=== PATIENT | female | born 1965 | race Caucasian/White ===

== ENCOUNTER 2023-03-23 06:32 | Observation (INO) ==
--- NOTE | 2023-01-26 12:29 | PAT Medication Instructions ---
Medication Instructions Date of Service January 26, 2023 Home Medications acetaminophen 300 mg-codeine 30 mg tablet 1 tab PO Q8H PRN Pain atorvastatin 40 mg tablet 40 mg PO PM cholecalciferol (vitamin D3) 50 mcg (2,000 unit) tablet (Vitamin D3) 2,000 unit PO BID cyclobenzaprine 10 mg tablet 10 mg PO TID PRN Muscle Spasm cyclosporine 0.05 % eye drops in a dropperette (Restasis) 1 drp ophthalmic (eye) Q12H empagliflozin 10 mg tablet (Jardiance) 10 mg PO QPM escitalopram oxalate 10 mg tablet (Lexapro) 10 mg PO QAM fexofenadine 180 mg tablet 180 mg PO QPM fluticasone propionate 50 mcg/actuation nasal spray,suspension 1 spray intranasal QAM gabapentin 300 mg tablet 300 mg PO HS lacosamide 100 mg tablet 100 mg PO BID levothyroxine 75 mcg tablet 75 mcg PO QPM omega-3 fatty acids-fish oil 684 mg-1,200 mg capsule,delayed release 1 cap PO BID pantoprazole 20 mg tablet,delayed release 20 mg PO QPM potassium chloride 20 mEq tablet,extended release 20 meq PO QPM pramipexole 0.5 mg tablet (Mirapex) 0.5 mg PO TID valsartan 40 mg tablet 40 mg PO QPM STOP taking 2 weeks before surgery (or as soon as possible if surgery is within 2 weeks) omega-3 fatty acids-fish oil 684 mg-1,200 mg capsule,delayed release 1 cap PO BID STOP taking 3 days before surgery empagliflozin 10 mg tablet (Jardiance) 10 mg PO QPM DO NOT take the morning of surgery cholecalciferol (vitamin D3) 50 mcg (2,000 unit) tablet (Vitamin D3) 2,000 unit PO BID cyclobenzaprine 10 mg tablet 10 mg PO TID PRN Muscle Spasm Take morning of surgery With a small sip of water, OTHERWISE NOTHING TO EAT OR DRINK AFTER MIDNIGHT: acetaminophen 300 mg-codeine 30 mg tablet 1 tab PO Q8H PRN Pain (if needed) cyclosporine 0.05 % eye drops in a dropperette (Restasis) 1 drp ophthalmic (eye) Q12H escitalopram oxalate 10 mg tablet (Lexapro) 10 mg PO QAM fluticasone propionate 50 mcg/actuation nasal spray,suspension 1 spray intranasal QAM lacosamide 100 mg tablet 100 mg PO BID pramipexole 0.5 mg tablet (Mirapex) 0.5 mg PO TID Take evening before surgery acetaminophen 300 mg-codeine 30 mg tablet 1 tab PO Q8H PRN Pain (if needed) atorvastatin 40 mg tablet 40 mg PO PM cholecalciferol (vitamin D3) 50 mcg (2,000 unit) tablet (Vitamin D3) 2,000 unit PO BID cyclobenzaprine 10 mg tablet 10 mg PO TID PRN Muscle Spasm (if needed) cyclosporine 0.05 % eye drops in a dropperette (Restasis) 1 drp ophthalmic (eye) Q12H fexofenadine 180 mg tablet 180 mg PO QPM gabapentin 300 mg tablet 300 mg PO HS lacosamide 100 mg tablet 100 mg PO BID levothyroxine 75 mcg tablet 75 mcg PO QPM pantoprazole 20 mg tablet,delayed release 20 mg PO QPM potassium chloride 20 mEq tablet,extended release 20 meq PO QPM pramipexole 0.5 mg tablet (Mirapex) 0.5 mg PO TID valsartan 40 mg tablet 40 mg PO QPM Other Notes If you have any questions please call us at [phone] or [phone] or [phone] or [phone]
--- NOTE | 2023-01-29 11:15 | Anesthesiology Consultation ---
Date of Service January 29, 2023 Assessment & Plan (1) Encounter for pre-operative examination: - check BSG am DOS. - patient was scheduled for L TKA 12/22/22, this was cancelled due to cellulitis of left lower extremity per patient. She states is soon establishing care with infectious disease and starting IV antibiotics. Suad with surgeon's office states the provider is aware in full of details including patient establishing care with infectious disease for ongoing treatment. - anesthesia reaction: bradycardia after bladder botox injection. - medical clearance 12/03/22: "...surgical clearance for her left knee replacement...pre-operative risk stratification for left TKA at [facility] w/Dr. Mckenzie...risk of major cardiac event (95% CI)-3.9% (2.9%-5.4%) risk of , [place] or cardiac arrest at 30 days after noncardiac surgery. 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 Wallis who advised nothing additional is needed from anesthesia standpoint prior to surgery. - Outpatient joint assessment: Patient is currently scheduled for inpatient pathway. If re-evaluated and patient/surgeon requests outpatient pathway, patient is not recommended candidate for outpatient joint program from anesthesia standpoint. Chart Review Chart Review: Acceptable Risk for Surgery and Patient seen in Pre Admission Testing Teaching & Discussion Pre-Anesthesia Teaching/Discussion Notes: Instructed NPO after midnight before surgery, except medications with 15 cc of water. Medication instructions provided according to the PAT guidelines. History Surgery Operation Date: 02/10/23 07:00 Proposed Procedures p Right Total Knee Arthroplasty - Dayne Mckenzie DO Height/Weight Height: 5 ft 5 in Weight: 132.3 kg Allergies Allergy/AdvReac Type Severity Reaction Status Date / Time adhesive Allergy Mild Rash Verified 01/25/23 15:40 fluconazole Allergy Mild Rash Verified 01/25/23 15:40 Sulfa (Sulfonamide Allergy Mild Rash Verified 01/25/23 15:40 Antibiotics) Thiazides Allergy Mild Rash Verified 01/25/23 15:40 lamotrigine Allergy Intermediate generalized Uncoded 01/29/23 12:00 rash and itching nystatin Allergy Intermediate rash Uncoded 01/29/23 12:00 Medications Home Medications Medication Instructions Recorded Confirmed Last Taken acetaminophen 300 mg-codeine 30 mg 1 tab PO Q8H PRN Pain 11/19/22 01/25/23 12/20/22 20:00 tablet atorvastatin 40 mg tablet 40 mg PO PM 11/19/22 01/25/23 12/21/22 23:00 cholecalciferol (vitamin D3) 50 2,000 unit PO BID 11/19/22 01/25/23 12/22/22 06:00 mcg (2,000 unit) tablet (Vitamin D3) cyclobenzaprine 10 mg tablet 10 mg PO TID PRN Muscle Spasm 11/19/22 01/25/23 12/19/22 20:00 cyclosporine 0.05 % eye drops in a 1 drp ophthalmic (eye) Q12H 11/19/22 01/25/23 Unknown dropperette (Restasis) empagliflozin 10 mg tablet 10 mg PO QPM 11/19/22 01/25/23 12/18/22 20:00 (Jardiance) escitalopram oxalate 10 mg tablet 10 mg PO QAM 11/19/22 01/25/23 12/22/22 06:00 (Lexapro) fexofenadine 180 mg tablet 180 mg PO QPM 11/19/22 01/25/23 12/21/22 23:00 fluticasone propionate 50 1 spray intranasal QAM 11/19/22 01/25/23 12/21/22 23:00 mcg/actuation nasal spray,suspension gabapentin 300 mg tablet 300 mg PO HS 11/19/22 01/25/23 12/18/22 08:00 lacosamide 100 mg tablet 100 mg PO BID 11/19/22 01/25/23 12/22/22 06:00 levothyroxine 75 mcg tablet 75 mcg PO QPM 06/01/25/23 12/21/22 23:00 omega-3 fatty acids-fish oil 684 1 cap PO BID 11/19/22 01/25/23 12/15/22 23:00 mg-1,200 mg capsule,delayed release pantoprazole 20 mg tablet,delayed 20 mg PO QPM 11/19/22 01/25/23 12/22/22 06:00 release potassium chloride 20 mEq 20 meq PO QPM 11/19/22 01/25/23 12/21/22 23:00 tablet,extended release pramipexole 0.5 mg tablet (Mirapex) 0.5 mg PO TID 11/19/22 01/25/23 12/21/22 23:00 valsartan 40 mg tablet 40 mg PO QPM 11/19/22 01/25/23 12/21/22 23:00 Past Medical History Medical History (Updated 02/01/23 @ 09:52 by Pat Wiley PA-C) Asthma controlled, stable per pt Chronic kidney disease (CKD), stage III (moderate) Depression Epilepsy Grand mal type, most recent 09/2022 (in setting of being taken off of her off seizure med, since has been put back on lacosamide- no issues since) Follows with neurology (Dr. Elfego Rogers/[facility]) GERD (gastroesophageal reflux disease) controlled, stable per pt Hearing deficit Hiatal hernia History of COVID-19 04/2021- mild symptoms -denies hospitalization-resolved HTN (hypertension) Per PCP records, patient denies Hyperglycemia Per PCP records, started on Jardiance for hx of hyperglycemia Patient states reason she is taking is for renal protection; 01/29/23 A1c 5.9% Hyperlipidemia Hypothyroidism Lupus Morbid obesity with BMI of 45.0-49.9, adult Polyneuropathy Per PCP records Raynaud disease Sleep apnea CPAP (non-compliant x 2 years) Temporomandibular joint disorder + clicking, no locking, braces "helped" Patient denies h/o stroke, heart attack, heart failure, blood clots or blood transfusions. Exercise / Class Metabolic Activity III < 4 Walking/Shop/Light housework (denies chest discomfort or shortness of breath with usual activities, ambulates with canes) Past Family History Family History Mother Family history of reaction to anesthesia nausea Past Surgical History Surgical History (Updated 01/29/23 @ 11:05 by Pat Wiley PA-C) History of anesthesia reaction Bradycardia after bladder botox injection History of bladder surgery botox injection History of carpal tunnel surgery of right wrist History of colonoscopy History of esophagogastroduodenoscopy (EGD) History of lumbar laminectomy History of lumpectomy of right breast benign History of partial hysterectomy History of placement of ear tubes History of shoulder surgery x2 on right--decompression/claviclectomy History of sinus surgery x2 History of surgical removal of ganglion cyst R wrist History of tonsillectomy History of tooth extraction History of wisdom tooth extraction Hx of LASIK Nausea and vomiting after administration of anesthetic agent Status post biopsy of kidney pt unsure of results, 05/2022 Status post correction of deviated nasal septum Status post peroneal tendon repair 2016 [place] Past Anesthesia History Other (bradycardia with bladder botox injection; mother with PONV) History of PONV No Hx of Motion Sickness and History of PONV (denies needing scop patch) Social History Smoking Status: Former smoker Do You Dip or Chew Tobacco: No Smoking End Date: 30 years ago Hx Alcohol Use: Yes Alcohol type: wine alcohol intake frequency: holidays/special occasions only Hx Substance Use: No substance use type: does not use Review of Systems Patient denies chest pain, shortness of breath, dyspnea on exertion, fever, chills, cough, wheezing, or palpitations. Physical Exam Vital Signs Vitals BP 132/80 P 80 TEMP 97.7 SP02 95% on RA RESP 18 Physical Full cervical extension range of motion without pain TMD 3.5 finger breadths Mallampati Score 2 Dentition: front upper chipped tooth and cap; denies loose teeth, crowns, implants or bridges Lungs: normal respiratory effort. Good air movement, clear throughout to auscultation, no adventitious breath sounds Cardiac: regular rate and rhythm, no murmurs noted Carotid arteries: negative bruit bilat Lab Results Anesthesia Preop Results Results Anesthesia Widget: WBC 7.12 K/ul (4.8-10.8) 01/29/23 Hgb 13.3 g/dl (12.0-16.0) 01/29/23 Hct 41.3 % (37.0-47.0) 01/29/23 Plt 229 K/uL (130-400) 01/29/23 Na 140 mmol/L (136-145) 01/29/23 K 4.1 mmol/L (3.5-5.1) 01/29/23 Cl 108 mmol/L (98-107) H 01/29/23 CO2 25 mmol/L (21-32) 01/29/23 BUN 22 mg/dl (6-23) 01/29/23 Creat 0.75 mg/dl (0.6-1.2) 01/29/23 Glucose Level 101 mg/dl (70-99(Fasting)) H 01/29/23 POC Glucose 92 mg/dl (70-99) 12/22/22 PT 10.5 Seconds (9.0-12.0) 01/29/23 PTT 28.2 Seconds (21.0-31.0) 01/29/23 INR 1.0 (0.9-1.1) 01/29/23 HA1c 5.9 % (4.5-5.6) H 01/29/23 Urine Color Yellow 01/29/23 Urine Appearance Clear (Clear) 01/29/23 Urine pH 5.0 (4.5-7.5) 01/29/23 Urine Specific [place] 1.039 (1.000-1.030) H 01/29/23 Urine Protein 2+ (Negative) H 01/29/23 Urine Glucose (UA) 3+ (Negative) H 01/29/23 Urine Ketones Negative (Negative) 01/29/23 Urine Blood Trace (Negative) H 01/29/23 Urine Nitrite Negative (Negative) 01/29/23 Urine Bilirubin Negative (Negative) 01/29/23 Urine Urobilinogen Negative (Negative) 01/29/23 Urine Leukocyte Esterase Negative (Negative) 01/29/23 Urine WBC (Auto) >30 /hpf (0-5) H 01/29/23 Urine RBC (Auto) 5-10 /hpf (0-4) H 01/29/23 Urine Hyaline Casts (Auto) 1-5 /lpf (0-5) 01/29/23 Urine Epithelial Cells (Auto) 20-30 /lpf (0-5) H 01/29/23 Urine Bacteria (Auto) Negative (Negative) 01/29/23 SARS-CoV-2, RNA, NAAT NEGATIVE (NEGATIVE) 12/22/22 Blood Type O Positive 01/29/23 Antibody Screen NEGATIVE 01/29/23 Testing Electrocardiogram Date: 12/01/22 NSR, rate 86 bpm Chest X-Ray Date: 12/01/22 No acute chest disease Echocardiogram Date: 08/24/22 EF 55-60% Normal wall motion No regional wall motion abnormalities LA mildly dilated No significant valvular pathology Other Testing MRI brain 10/29/22 No significant intracranial abnormality CT abdomen pelvis 10/14/22 Colonic diverticulosis Degenerative changes of the spine with grade 1 anterolisthesis of L4 on L5 No findings to explain the patient's hematuria
--- NOTE | 2023-03-09 07:53 | History & Physical Report ---
Date of Service March 09, 2023 date of surgery: 03/23/23 procedure: Right Total Knee Arthroplasty Surgeon: Dayne Mckenzie Assessment & Plan (1) Arthritis of right knee: Plan: Risk and benefits of the procedure were discussed, she has elected to proceed with surgical invention, right total knee arthroplasty. Discussed overnight stay at the hospital with discharge home the following day with home health physical therapy. Will place on aspirin 81 mg twice a day for 1 month postop, follow-up 2 weeks after surgery sooner if she is having any issues The risks and benefits have been discussed including, but not limited to, risk of infection, nerve injury, stiffness, loss of motion, failure to improve, etc. Reasonable outcomes and options of treatment were discussed. An explanation of appropriate alternatives to the procedure that may be advantageous were discussed and their risks and benefits, as well as the risks and benefits of not proceeding with treatment. I offered to answer any additional inquiries concerning the treatment involved. All the patient's questions were answered. The patient is agreeable, understanding of the treatment plan and alternatives, and wishes to proceed with the treatment plan. History of Present Illness Chief Complaint: Right knee pain Primary Care Provider: Sandy Milligan DO Mrs. De Anda is a 58-year-old female who presents for preop evaluation prior to her Right total knee replacement. She has been having pain in the right knee for many years now which is gradually worsened and is now affecting her daily activities including walking standing using stairs, she does ambulate with the assistance of 2 canes. She has had previous corticosteroid injections as well as viscosupplementation without much improvement. At this point in time x-rays were reviewed which show advanced degenerative changes to the Right knee, after discussing further care she would like to proceed with surgical intervention Allergies Allergy/AdvReac Type Severity Reaction Status Date / Time adhesive Allergy Mild Rash Verified 01/25/23 15:40 fluconazole Allergy Mild Rash Verified 01/25/23 15:40 Sulfa (Sulfonamide Allergy Mild Rash Verified 01/25/23 15:40 Antibiotics) Thiazides Allergy Mild Rash Verified 01/25/23 15:40 lamotrigine Allergy Intermediate generalized Uncoded 01/29/23 12:00 rash and itching nystatin Allergy Intermediate rash Uncoded 01/29/23 12:00 Home Medications Medication Instructions Recorded Confirmed Type acetaminophen 300 mg-codeine 30 mg 1 tab PO Q8H PRN Pain 11/19/22 01/25/23 Hi story tablet atorvastatin 40 mg tablet 40 mg PO PM 11/19/22 01/25/23 History cholecalciferol (vitamin D3) 50 2,000 unit PO BID 11/19/22 01/25/23 History mcg (2,000 unit) tablet (Vitamin D3) cyclobenzaprine 10 mg tablet 10 mg PO TID PRN Muscle Spasm 11/19/22 01/25/23 History cyclosporine 0.05 % eye drops in a 1 drp ophthalmic (eye) Q12H 11/19/22 01/25/23 History dropperette (Restasis) empagliflozin 10 mg tablet 10 mg PO QPM 11/19/22 01/25/23 History (Jardiance) escitalopram oxalate 10 mg tablet 10 mg PO QAM 11/19/22 01/25/23 History (Lexapro) fexofenadine 180 mg tablet 180 mg PO QPM 11/19/22 01/25/23 History fluticasone propionate 50 1 spray intranasal QAM 11/19/22 01/25/23 History mcg/actuation nasal spray,suspension gabapentin 300 mg tablet 300 mg PO HS 11/19/22 01/25/23 History lacosamide 100 mg tablet 100 mg PO BID 11/19/22 01/25/23 History levothyroxine 75 mcg tablet 75 mcg PO QPM 11/19/22 01/25/23 History omega-3 fatty acids-fish oil 684 1 cap PO BID 11/19/22 01/25/23 History mg-1,200 mg capsule,delayed release pantoprazole 20 mg tablet,delayed 20 mg PO QPM 11/19/22 01/25/23 History release potassium chloride 20 mEq 20 meq PO QPM 11/19/22 01/25/23 History tablet,extended release pramipexole 0.5 mg tablet (Mirapex) 0.5 mg PO TID 11/19/22 01/25/23 History valsartan 40 mg tablet 40 mg PO QPM 11/19/22 01/25/23 History Past Med/Surg History Medical History Asthma controlled, stable per pt Chronic kidney disease (CKD), stage III (moderate) Depression Epilepsy Grand mal type, most recent 09/2022 (in setting of being taken off of her off seizure med, since has been put back on lacosamide- no issues since) Follows with neurology (Dr. Elfego Rogers/[facility]) GERD (gastroesophageal reflux disease) controlled, stable per pt Hearing deficit Hiatal hernia History of COVID-19 04/2021- mild symptoms -denies hospitalization-resolved HTN (hypertension) Per PCP records, patient denies Hyperglycemia Per PCP records, started on Jardiance for hx of hyperglycemia Patient states reason she is taking is for renal protection; 01/29/23 A1c 5.9% Hyperlipidemia Hypothyroidism Lupus Morbid obesity with BMI of 45.0-49.9, adult Polyneuropathy Per PCP records Raynaud disease Sleep apnea CPAP (non-compliant x 2 years) Temporomandibular joint disorder + clicking, no locking, braces "helped" Surgical History History of anesthesia reaction Bradycardia after bladder botox injection History of bladder surgery botox injection History of carpal tunnel surgery of right wrist History of colonoscopy History of esophagogastroduodenoscopy (EGD) History of lumbar laminectomy History of lumpectomy of right breast benign History of partial hysterectomy History of placement of ear tubes History of shoulder surgery x2 on right--decompression/claviclectomy History of sinus surgery x2 History of surgical removal of ganglion cyst R wrist History of tonsillectomy History of tooth extraction History of wisdom tooth extraction Hx of LASIK Nausea and vomiting after administration of anesthetic agent Status post biopsy of kidney pt unsure of results, 05/2022 Status post correction of deviated nasal septum Status post peroneal tendon repair 2016 [place] Family History Mother Family history of reaction to anesthesia nausea Social History Smoking Status: Former smoker Second Hand Exposure: No; Do You Dip or Chew Tobacco: No; Hx Alcohol Use: Yes Alcohol type: wine Hx Substance Use: No Preferred Language: Faroese Communication Ability: Effective Coagulating Operator Required: No Beliefs That Will Affect Care: None Current Living Situation: Alone Feels Safe at Home: Yes Assistive Devices: Cane, CPAP, Glasses and Hearing Aid - Bilateral Review of Systems Review of Systems: All systems reviewed & are unremarkable except as noted in HPI & below Constitutional: no fever, no chills and no sweats Respiratory: no cough and no dyspnea Cardiovascular: no chest pain, no dyspnea and no orthopnea Gastrointestinal: no abdominal pain, no nausea and no vomiting Musculoskeletal: as per Subjective / HPI Physical Exam Physical Exam: HT: 5ft 5in WT: 132 kg Constitutional: WD/WN, vitals as above no acute distress Respiratory: normal respiratory effort, lungs clear to auscultation no respiratory distress, no labored breathing and does not use accessory muscles Cardiovascular: RRR, no murmur, no edema Gastrointestinal (Abdomen): normal bowel sounds, soft, nontender, no hepatosplenomegaly Musculoskeletal: Right Knee Physical Exam ambulates with a limp, there is no erythema, warmth, ecchymosis or atrophy noted, +1 effusion, greatest tenderness over the medial joint line and anterior knee joint. negative patellar apprehension , mild crepitation with motion, jimmy's negative, posterior drawer negative. positive mcmurrays medially, negative anterior drawer, knee stable with valgus/varus stress. no extensor lag. pain with active range of motion, AROM 0/3/110, Passive ROM 0/3/115. No pain with active/passive ROM of ankle. Lower Extremity Strength normal. Lower Extremity Neuro-vascular is normal Results & Data Results & Data Diagnostic Findings Right Knee X-ray: Right knee series showing advanced degenerative changes to the right knee, joint space narrowing, osteophyte formation and subchondral sclerosis noted. no acute bony pathology noted.
[~2023-03-23 06:32] MED LIST: ACETAMINOPHEN 500 MG TAB PO SCH; CeleBREX 200 MG CAP PO SCH; FAMOTIDINE 20 MG TAB PO SCH; GABAPENTIN 300 MG CAP PO SCH; LR 500ML BOLUS, THEN 15ML/HR IV SCH; LR 60ML/HR IV SCH; METOCLOPRAMIDE HCL 10 MG TABLET PO SCH; ROPIVACAINE 0.5% HCL/PF 150 MG, BUPIVACAINE 0.75% MPF 20 ML, EPINEPHrine 30MG/30ML (OR ... INSTIL SCH; TRANEXAMIC ACID 1,000 MG **IV Intra-op IV SCH; TRANEXAMIC ACID 1,000 MG **IV Pre-op IV SCH
[2023-03-23] MEDS ORDERED: ORTHO JOINT ANESTHETIC ONE (06:38)
[2023-03-23] MEDS ORDERED: KETOROLAC 30 MG/ML VIAL ONE (06:41)
[2023-03-23] MEDS ORDERED: LIDOCAINE 2% 2 ML VIAL/AMP(20MG/ML) INFIL ONE (06:41)
[2023-03-23] MEDS ORDERED: MIDAZOLAM HCL 1 MG/ML 2ML VIAL ONE (06:41)
[2023-03-23] MEDS ORDERED: PROPOFOL IV EMULSION 10 MG/ML 20 ML VIAL IV ONE ×3 (06:41→09:33)
[2023-03-23] MEDS ORDERED: ONDANSETRON INJ 2 MG/ML 2 ML VIAL ONE (06:41)
[2023-03-23] MEDS ORDERED: GLYCOPYRROLATE 0.2 MG/ML VIAL ONE (06:41)
[2023-03-23] MEDS ORDERED: KETAMINE 50 MG/5 ML SYRINGE ONE (06:51)
--- NOTE | 2023-03-23 07:28 | History & Physical Bridge Note ---
Date of Service March 23, 2023 History & Physical Bridge Note I have examined the patient, reviewed the History & Physical and in the interval since the performance of the History & Physical I have noted the following changes of clinical significance: no changes noted
[2023-03-23] MEDS ORDERED: BUPIVACAINE 0.5 % 5 MG/1 ML PF 10ML VIAL ONE (07:32)
[2023-03-23] MEDS ORDERED: ROPIVACAINE 0.5% 5 MG/ML 30 ML VIAL ONE (07:32)
[2023-03-23] MEDS ORDERED: fentaNYL citrate PF 100 MCG/2 ML VIAL IV PRN (08:28)
[2023-03-23] MEDS ORDERED: ATROPINE SULFATE 0.1 MG/ML 10ML SYR IV PRN (08:28)
[2023-03-23] MEDS ORDERED: ePHEDrine sulfate 50 MG/ML AMP IV PRN (08:28)
[2023-03-23] MEDS ORDERED: PHENYLEPHRINE 100MCG/ML 5ML SYR ONE (09:05)
[2023-03-23] MEDS ORDERED: ePHEDrine sulfate 50 MG/5 ML SYR ONE (09:21)
--- NOTE | 2023-03-23 10:03 | Operative Report ---
Post Operative Report Pre & Post Diagnosis Operation Date: 03/23/23 08:15 Pre-Op Diagnosis: Right Knee Osteoarthritis Post-Op Diagnosis: Right Knee Osteoarthritis I identified the patient and participated in the time-out.: Yes Procedure Operation Date: 03/23/23 08:15 Actual Procedures p Right Total Knee Arthroplasty(Right) Utilizing [employer] 2 patient-matched total knee arthroplasty size femur 5 tibia 5 Poly 11 patella 32 justine Mckenzie DO Surgeon Dayne Mckenzie DO Lei Maker Hector BRAUN Estimated Blood Loss 10 Findings Consistent with Post-Op Diagnosis Patient presents with severe end-stage tricompartmental DJD eburnated [id number] marginal osteophytes subchondral sclerosis moderate to large effusion Specimens Bone and cartilage Drains Medium bore Hemovac Anesthesia Type MAC Spinal Regional Complications none Disposition Accompanied Patient To Recovery: No Disposition: Recovery Room Indications Patient presents with severe end-stage tricompartmental DJD after failed attempted conservative management occluding physical therapy anti-inflammatories relative rest activity modification corticosteroid injection viscosupplementation Description of Procedure After proper prepping and draping of the Right lower extremity anterior midline incision was made over the region of the extensor extensor mechanism after meticulous hemostasis was obtained and maintained in subcutaneous tissues a medial parapatellar incision was made The patella was subluxed lateralward the medial lateral gutter were cleaned from any hypertrophic synovitis and scar tissue of the distal femoral block was placed and the distal femoral osteotomy cut was made subsequently the chamfers anterior and posterior osteotomy cuts were made utilizing the 4-in-1 block the tibia was subsequently subluxed anteriorward medial and ateral meniscal remnants were excised in their entirety remnants of the anterior and posterior cruciate ligaments were excised in their entirety excellent exposure of the proximal tibia was obtained the tibial osteotomy guide was placed on the proximal tibial osteotomy cut was made once again the knee was irrigated with copious amounts of sterile saline solution the patella was subsequently everted lateralward thickened scar tissue around the patella was removed the patella was subsequently cut utilizing a freehand technique and was drilled prepared for final preparation and placement of patella socially flexion-extension gaps were checked and the equal and symmetric trials were placed to the appropriate femoral and tibial trials with poly-spacer being placed for equal flexion and extension gaps and full range of motion including extension to 0 and flexion to 140 the trial components after having been taken to recovery range of motion was subsequently removed meticulous hemostasis was obtained and maintained subsequently a knee block injection of joint cocktail including ropivacaine 0.5% 150 mg. Bupivacaine 0.5% epinephrine 1-200,030 mL's toradol 30 mg dexamethasone 4 mg ketamine 10 mg clonidine 100 micrograms normal saline solution 30 mg was infiltrated into the soft tissues of the posterior knee medial lateral gutters and periosteal synovium special attention was paid to protect neurovascular structures at all times subsequently trial components having been removed the knee was irrigated with sterile saline solution. debris was removed the proximal tibia was subsequently prepared and was made ready for the placement of the tibial component tibial component was also cemented and tamped into position the femoral component was subsequently placed and cemented in the position the patellar component was subsequently cemented in position because hemostasis once again obtained and maintained wound having been thoroughly irrigated with debridement and debridement lavage was performed as well as a medial parapatellar incision closed with #1 Vicryl in interrupted fashion subcutaneous was closed with #2 Vicryl skin was closed with skin clips. PA-C was necessary for prepping and drapping as well as wound closure of deep fascia Sub cutaneous tissue and skin and was necessary for the case. A sterile compressive dressing was placed patient was taken to recovery in stable condition of report dictated by Jonah I attest to the content of the Intraoperative Record and any orders documented therein. Any exceptions are noted below.Due to the complex nature of the procedure, the entire surgery was performed with the operational assistance of Hector BRAUN. The addictions counselor assistant, under direct supervision, was involved in the actual performance of all aspects of the surgical procedure including hemostas is, tissue retraction and incision, instrument management, patient positioning, and wound closure. I attest to the content of the Intraoperative Record and any orders documented therein. Any exceptions are noted below.
--- NOTE | 2023-03-23 11:15 | XRay Report ---
XR knee RT 1 or 2V routine CLINICAL HISTORY: Postoperative evaluation. COMPARISON: Knee radiographs March 28, 2020. FINDINGS: Alignment of the total right knee arthroplasty is anatomic. There is no periprosthetic fra cture or unexpected radiopaque foreign body. There are surgical drains. IMPRESSION: Expected findings following total right knee arthroplasty. ACT 112: Negative or not required by law. Electronically signed by: Danny Maier M.D. 03/23/2023 11:13 AM
[2023-03-23] MEDS ORDERED: ONDANSETRON INJ 2 MG/ML 2 ML VIAL IV PRN (12:29)
[2023-03-23] MEDS ORDERED: diphenhydrAMINE 50 MG/ML VIAL IV PRN (12:29)
[2023-03-23] MEDS ORDERED: HYDROmorphone INJ 0.5 MG/0.5 ML SYR IV PRN (12:29)
[2023-03-23] MEDS ORDERED: MAGNESIUM HYDROXIDE SUSP 30 ML UDC PO PRN (12:29)
[2023-03-23] MEDS ORDERED: bisacodyL 10 MG SUPP PR PRN (12:29)
[2023-03-23] MEDS ORDERED: NALOXONE HCL 0.4 MG/1 ML VIAL/CARP IV PRN (12:29)
[2023-03-23] MEDS ORDERED: ARTIFICIAL TEARS OPB PRN (13:06)
[2023-03-23] MEDS ORDERED: PHARMACY GLYCEMIC MGMT CONSULT PRN (13:24)
[2023-03-23] MEDS: SODIUM CHLORIDE 0.9% 1,000 ML IV SCH ×2 (13:58→23:42)
--- NOTE | 2023-03-23 14:10 | Pharmacy Report ---
Pharmacy Glycemic Short Note 2 - Date of Service March 23, 2023 - Glycemic Short BSG Results (Last 24 hours): 03/23/23 06:59 POC Glucose 116 H OUTPATIENT ANTIDIABETIC REGIMEN: * Jardiance 10 mg PO daily * HbA1C = 5.9% (01/29/23) ASSESSMENT: * Ms De Anda is a 58 y/o F with a PMH of T2DM who presents for RTKA. Patient is POD 0. * Patient received dexamethasone in ortho mix. * Patient's preop BSG was 116 mg/dL. Patient ate lunch prior to post-op BSG. * Due to fasting <120 mg/dL, will defer on basal insulin. * Novolog weight-based stress of 2. PLAN FOR INPATIENT GLYCEMIC CONTROL: * Hold outpatient oral diabetes medications * Basal insulin * defer * Bolus insulin * NovoLog per scale ACHS or Q6hrs while NPO * Goal Range: Low 110 mg/dL - High 140 mg/dL * Correction Factor: 25 mg/dL/unit * Nutritional / Prandial insulin per carb ratio of 1 unit per 7 grams CHO consumed
[2023-03-23] MEDS: LEVOTHYROXINE SODIUM 75 MCG TABLET PO SCH (14:36)
[2023-03-23] MEDS: PRAMIPEXOLE DIHYDROCHLO 0.5 MG TAB PO SCH ×2 (14:37→20:56)
[2023-03-23] MEDS: ACETAMINOPHEN 500 MG TAB PO SCH ×2 (14:37→22:16)
--- NOTE | 2023-03-23 15:13 | Anesthesiology Progress Note ---
Date of Service March 23, 2023 Anesthesia Post Procedure Vital Signs Vital Signs: Temp Pulse Pulse Resp BP Pulse Ox O2 Del Method 03/23/23 14:46 36.8 C 91 H 16 115/68 94 Room Air 03/23/23 14:15 37 C 88 17 124/71 96 Room Air 03/23/23 13:45 37.1 C 95 H 16 146/81 H 93 Room Air 03/23/23 13:20 97 H 19 114/65 93 Room Air 03/23/23 12:50 68 18 100/70 96 Room Air 03/23/23 12:20 85 20 126/56 L 94 Room Air 03/23/23 12:05 73 15 108/57 L 91 Room Air 03/23/23 11:50 48 L 21 103/47 L 98 Room Air 03/23/23 11:35 83 13 126/63 95 Room Air 03/23/23 11:20 36.3 C L 62 14 126/63 95 Room Air 03/23/23 11:10 89 19 124/70 92 Room Air 03/23/23 11:00 65 13 116/63 95 Room Air 03/23/23 10:50 86 18 106/65 97 Oxymask 03/23/23 10:41 36.6 C 89 21 96/53 L 100 Oxymask 03/23/23 07:03 36.9 C 83 18 155/81 H 94 Room Air O2 Flow Rate 03/23/23 14:46 03/23/23 14:15 03/23/23 13:45 03/23/23 13:20 03/23/23 12:50 03/23/23 12:20 03/23/23 12:05 03/23/23 11:50 03/23/23 11:35 03/23/23 11:20 03/23/23 11:10 03/23/23 11:00 03/23/23 10:50 4 03/23/23 10:41 6 03/23/23 07:03 Pain Intensity Right Knee: Pain Intensity: 7 Transfer of Care Handoff Completed per policy Notes Mental Status: alert / awake / arousable and participated in evaluation Nausea / Vomiting: adequately controlled Pain: adequately controlled Airway Patency, RR, SpO2: stable & adequate BP & HR: stable & adequate Hydration State: stable & adequate Neuraxial Anesthesia: was administered and sensory block is resolving Anesthetic Complications: no major complications apparent and Pt Satisfied with anesthetic care
[2023-03-23] MEDS: ceFAZolin 2000MG 2,000 MG/15 ML SYR IV SCH (16:04)
[2023-03-23] MEDS: INSULIN ASPART PER UNIT CHARGE SC SCH ×2 (17:23→20:59)
[2023-03-23] MEDS: ASPIRIN 81 MG ECTAB PO SCH (20:56)
[2023-03-23] MEDS: CHOLECALCIFEROL 1,000 UNITS 25 MCG TAB PO SCH (20:57)
[2023-03-23] MEDS: VALSARTAN 80 MG TAB PO SCH ×2 (20:57→21:23)
[2023-03-23] MEDS ORDERED: PANTOprazole 40 MG TAB PO SCH (21:00)
[2023-03-23] MEDS ORDERED: ATORVASTATIN 40 MG TAB PO SCH (21:00)
[2023-03-23] MEDS ORDERED: SENNA 8.6 MG TAB PO SCH (21:00)
[2023-03-23] MEDS ORDERED: EMPAGLIFLOZIN 10 MG TAB PO SCH (21:00)
[2023-03-23] MEDS ORDERED: GABAPENTIN 300 MG CAP PO SCH (21:00)
[2023-03-23] MEDS ORDERED: POTASSIUM CHLORIDE CRTAB 20 MEQ TABCR PO SCH (21:00)
[2023-03-23] MEDS ORDERED: FEXOFENADINE HCL 180 MG TAB PO SCH (21:00)
[2023-03-23] MEDS: DOCUSATE SODIUM 100 MG CAP PO SCH (21:03)
[2023-03-23] MEDS: LACOSAMIDE 50 MG TABLET PO SCH (21:17)
[2023-03-23] MEDS: oxyCODONE HCL IR 5 MG TAB (IMMEDIATE RELEASE) PO PRN (22:15)
[2023-03-24] MEDS: ceFAZolin 2000MG 2,000 MG/15 ML SYR IV SCH (02:14)
[2023-03-24] MEDS: LEVOTHYROXINE SODIUM 75 MCG TABLET PO SCH (05:51)
[2023-03-24] MEDS: ACETAMINOPHEN 500 MG TAB PO SCH (06:15)
--- NOTE | 2023-03-24 06:58 | Orthopedic Progress Note ---
Date of Service March 24, 2023 Assessment & Plan (1) Arthritis of right knee: Plan: Postop day 1 status post right total knee arthroplasty. PT/OT protocols. Weightbearing as tolerated. DVT prophylaxis-aspirin p.o. twice daily, SCDs, JESSICA [place]. Pain management as written. DC planning-patient is planning for home health services upon discharge. We will see how she progresses with physical therapy. Evaluate laboratory values once available. Plan for discharge to home later this morning if she is progressing and labs are benign. Admission and Anticipated Discharge Date Admission Date: March 23, 2023 Subjective Postop day 1 Patient sitting up at the bedside awake and alert. No complaints this morning. She is feeling well. She is hoping to go home today. She states that she has been ambulating in the hallway off and on through the night. Physical Exam Physical Exam: Dressings are clean, dry, and intact. Calves are soft nontender. Neurovascular intact. Toes are mobile. She has good dorsiflexion and plantarflexion of the right foot. Hemovac drainage was 90 mL from the previous shift. Results & Data Vital Signs (Past 12 Hours) Vital Signs Temp Pulse Resp BP Pulse Ox O2 Del Method 03/24/23 02:57 36.8 C 68 18 105/63 96 Room Air 03/23/23 21:00 Room Air 03/23/23 20:00 36.6 C 78 18 112/73 96 Room Air 03/23/23 19:20 36.8 C 82 18 107/60 96 Room Air
[2023-03-24] MEDS: CHOLECALCIFEROL 1,000 UNITS 25 MCG TAB PO SCH (08:04)
[2023-03-24] MEDS: ASPIRIN 81 MG ECTAB PO SCH (08:05)
[2023-03-24] MEDS: PRAMIPEXOLE DIHYDROCHLO 0.5 MG TAB PO SCH (08:05)
[2023-03-24] MEDS: INSULIN ASPART PER UNIT CHARGE SC SCH (08:18)
[2023-03-24] MEDS: DOCUSATE SODIUM 100 MG CAP PO SCH (08:18)
[2023-03-24] MEDS: LACOSAMIDE 50 MG TABLET PO SCH (08:43)
[2023-03-24] MEDS ORDERED: ESCITALOPRAM OXALATE 10 MG TAB PO SCH (09:00)
[2023-03-24] MEDS ORDERED: FLUTICASONE PROPIONATE NA SPR 16 GM BTL SCH (09:00)
[2023-03-24] MEDS ORDERED: MULTIVITAMIN TAB PO SCH (09:00)
[2023-03-24 09:27] LABS: Hematocrit (blood only) 39.5 % (37.0-47.0); Hemoglobin 12.6 g/dl (12.0-16.0); Mean Corpuscular Hemoglobin 27.4 pg (25.0-34.0); Mean Corpuscular Hgb Conc 31.9 g/dL (32.0-36.0); Mean Corpuscular Volume 85.9 fL (80.0-100.0); Mean Platelet Volume 9.5 fL (9.4-12.4); Platelet Count 214 K/uL (130-400); RDW Coefficient of Variation 14.1 % (11.5-14.5); RDW Standard Deviation 43.8 fL (36.4-46.3); White Blood Count 10.95 K/ul (4.8-10.8)
[2023-03-24 09:46] LABS: BUN Creatinine Ratio 23.5 (10-20); Calcium 9.3 mg/dl (8.6-10.3); Creatinine Clr Calc Pharmacy 101.8 ml/min; Est GFR (African American) 91.5 ml/min; Est GFR (Non-African American) 78.9 ml/min; Potassium 3.7 mmol/L (3.5-5.1)
[2023-03-24] MEDS: oxyCODONE HCL IR 5 MG TAB (IMMEDIATE RELEASE) PO PRN (10:11)
--- NOTE | 2023-03-24 15:18 | Communication Note ---
Date of Service: March 24, 2023 Ms. De Anda, a 58 year old woman with medical problems including HTN DM and well controlled seizure disorder. She was admitted for TKA which was uneventful. She was discharged before hospitalist consult could be completed. I reviewed her chart including notes, vitals, labs, studies and discharge medications and have no further recommendations.
--- NOTE | 2023-03-24 18:49 | Discharge Summary ---
Date of Service March 24, 2023 Admission HPI Per Admitting Provider Mrs. De Anda is a 58-year-old female who presents for preop evaluation prior to her Right total knee replacement. She has been having pain in the right knee for many years now which is gradually worsened and is now affecting her daily activities including walking standing using stairs, she does ambulate with the assistance of 2 canes. She has had previous corticosteroid injections as well as viscosupplementation without much improvement. At this point in time x-rays were reviewed which show advanced degenerative changes to the Right knee, after discussing further care she would like to proceed with surgical intervention Admission Exam Per Admitting Provider Physical Exam: HT: 5ft 5in WT: 132 kg Constitutional: WD/WN, vitals as above no acute distress Respiratory: normal respiratory effort, lungs clear to auscultation no respiratory distress, no labored breathing and does not use accessory muscles Cardiovascular: RRR, no murmur, no edema Gastrointestinal (Abdomen): normal bowel sounds, soft, nontender, no hepatosplenomegaly Musculoskeletal: Right Knee Physical Exam ambulates with a limp, there is no erythema, warmth, ecchymosis or atrophy noted, +1 effusion, greatest tenderness over the medial joint line and anterior knee joint. negative patellar apprehension , mild crepitation with motion, jimmy's negative, posterior drawer negative. positive mcmurrays medially, negative anterior drawer, knee stable with valgus/varus stress. no extensor lag. pain with active range of motion, AROM 0/3/110, Passive ROM 0/3/115. No pain with active/passive ROM of ankle. Lower Extremity Strength normal. Lower Extremity Neuro-vascular is normal Principal Diagnosis Right Knee Osteoarthritis Discharge Data Allergies Allergy/AdvReac Type Severity Reaction Status Date / Time adhesive Allergy Mild Rash Verified 03/23/23 06:57 fluconazole Allergy Mild Rash Verified 03/23/23 06:57 Sulfa (Sulfonamide Allergy Mild Rash Verified 03/23/23 06:57 Antibiotics) Thiazides Allergy Mild Rash Verified 03/23/23 06:57 lamotrigine Allergy Intermediate generalized Uncoded 03/23/23 06:57 rash and itching nystatin Allergy Intermediate rash Uncoded 03/23/23 06:57 Consultations 03/23/23 12:29 Consult Hospitalist Routine Procedures Performed Operation Date: 03/23/23 08:15 Actual Procedures p Right Total Knee Arthroplasty(Right) - Dayne Mckenzie DO Ordered Studies 03/23/23 09:09 US - OR guided needle placemen Stat Hospital Course (1) Arthritis of right knee: atient:MECHE DE ANDA Admit Date:03/23/23 MR#:[id number] Att Phy:Dayne Mckenzie,Driss Acct ID:[id number] Kelsy Phy:Sandy Milligan DO Date:1965 Fam Phy: Age:58 Location:3N Sex:F Room/Bed:N376-2 cc: ~ *NOTICE TO RECEIVING CONSTITUTION PARTY/AGENCY This information is strictly Confidential and protected under [place] law. [place] law prohibits you from making any further disclosure of this information unless further disclosure is expressly permitted by the written consent of the person to whom it pertains or is authorized by law. A general authorization for the release of medical or other information is not sufficient for this purpose. Hospital accepts no responsibility if the information is made available to any other person, INCLUDING THE PATIENT. Date of Service March 24, 2023 Assessment & Plan (1) Arthritis of right knee: Plan: Postop day 1 status post right total knee arthroplasty. PT/OT protocols. Weightbearing as tolerated. DVT prophylaxis-aspirin p.o. twice daily, JESSICA [place]. Pain management as written. DC planning-patient is planning for home health services upon discharge. We will see how she progresses with physical therapy. Evaluate laboratory values once available. Plan for discharge to home later this morning if she is progressing and labs are benign. Admission and Anticipated Discharge Date Admission Date: March 23, 2023 Subjective Postop day 1 Patient sitting up at the bedside awake and alert. No complaints this morning. She is feeling well. She is hoping to go home today. She states that she has been ambulating in the hallway off and on through the night. Physical Exam Physical Exam: Dressings are clean, dry, and intact. Calves are soft nontender. Neurovascular intact. Toes are mobile. She has good dorsiflexion and plantarflexion of the right foot. Hemovac drainage was 90 mL from the previous shift. Results & Data Vital Signs (Past 12 Hours) Vital Signs Temp Pulse Resp BP Pulse Ox O2 Del Method 03/24/23 02:57 36.8 C 68 18 105/63 96 Room Air 03/23/23 21:00 Room Air 03/23/23 20:00 36.6 C 78 18 112/73 96 Room Air 03/23/23 19:20 36.8 C 82 18 107/60 96 Room Air Signed By: <Electronically signed by Dayne Mckenzie DO> 03/24/23 0717 <Electronically signed by Hector Duran PA-C> 03/24/23 0657 Created:03/24/23 0655 Total Time Total Time Spent Total Time Spent (In Minutes): 5 Discharge Plan Discharge Items Patient Disposition: Home - Home Health Services Reason For Visit: Right Knee Osteoarthritis Discharge Diagnosis: Right Knee Osteoarthritis Activity: Per Instructions section Weightbearing: Full weightbearing Non-emergency contact: Surgeon Call non-emergency contact if: you have any medication questions, your pain is not controlled, your temperature is above 101.5, your wound has increased redness and your wound has increased drainage Follow-up/Referrals: Dayne Mckenzie DO [Surgeon] - (Follow up with Dr Mckenzie in 2 weeks from the day of surgery for your first post operative visit. ) Sandy Milligan DO [Primary Care Provider] - Diet: Regular Addtl Attending Provider Instructions: ACTIVITY RECOMMENDATIONS: SELF CARE INSTRUCTIONS AFTER TOTAL KNEE REPLACEMENT A. You may need to continue a physical therapy program after discharge from the hospital. There are several options available to you. Your doctor will assist you in selecting the best one for you. 1. An out-patient facility 2 to 3 times a week for therapy or home therapy. 2. Continue working on all exercises taught to you in the hospital. Your goals should be to increase bending of your knee to 90 degrees and beyond and to fully straighten your knee. B. You may progress at your own pace from walking with a walker or crutches to a cane; then to no assistive devices. C. Make walking a part of your daily routine. Be up as much as comfortable with rest periods throughout the day. Rest with leg elevation is very important. Use the ice wrap frequently for the first 3-4 weeks. D. There are no restrictions on activities. You may ride in a car, shop, participate in it senior analyst and all social activities. E. Wear the long elastic stockings (JESSICA hose) 20 hours a day for 2 weeks after surgery. They can be removed several times a day for laundering and for a bath. F. You may shower, no tub baths until cleared by your doctor. SPECIAL CARE INSTRUCTIONS: VERY IMPORTANT TO READ AND REVIEW A. There are a few signs you need to watch for after you are home. Call [facility] if you notice any of the followin. Increased severe knee pain. Some pain is expected especially when you exercise. 2. Increased swelling in your leg or knee; pain or swelling of the calf muscle in either lower leg. 3. Any fluid drainage from the incision. 4. Shortness of breath or chest pain. B. Please call [facility] at if you have any concerns or questions about your operation or recovery. The doctor or his nurse will return your call promptly. C. You must take antibiotics before dental work, bladder, bowel or other surgery. Your doctor will provide you with a permanent care to carry describing this precaution. IMPORTANT: * REMEMBER TO TAKE ASPIRIN, 81 MG, TWICE DAILY FOR 4 WEEKS UNLESS OTHERWISE DIRECTED. THIS IS YOUR BLOOD THINNER. * CALL IF INCREASED PAIN, REDNESS, DRAINAGE OR FEVER GREATER THAT 101. * WEAR JESSICA HOSE 20 HOURS PER DAY FOR 2 WEEKS. * NADIA Dressing - This is a large suction dressing covering your incision. This will help pull any excess drainage from the wound and allow your incision to heal properly. You may shower with this if you can keep the unit outside of the shower. If any bleeding or leakage is noted please call your doctor's office. This will remain on your incision for 7 days and then should be removed. This can be done yourself or by the home nursing staff if applicable. The entire unit is disposable once removed. Once removed, keep incision clean and dry. If redness or drainage is noted, please call your surgeon. . Once your Nadia Dressing is removed, follow the wound care instructions below. * DERMABOND Prineo- This is a mesh tape dressing that is covered with glue. It should remain in place until the incision is properly healed, usually 10-14 days. This dressing is designed to naturally slough off. You may trim the excess mesh tape as it peels off. Incision may be briefly wet in a shower. Dry immediately by blotting with a clean, dry towel. Do not bath or swim until instructed by your doctor. Do not scratch, rub, or pick at the dressing. Do not apply any topical ointments or lotions until dressing is completely removed and/or instructed by your doctor. There may be a small piece of suture material at one end of your incision. Do not pull or trim this. If it is bothersome or catching on clothing, you may cover it with a band-aid. FOLLOW UP VISIT: If appointment is not already scheduled: Please call [facility] to make a follow-up appointment for 2 weeks after your surgery at . Stand-Alone Forms: My [facility] A Partager, Smoking Cessation Medications and DC Order Prescriptions: New acetaminophen [Tylenol Extra Strength] 500 mg Tablet 1,000 mg PO Q8 14 Days Qty: 84 0RF aspirin 81 mg Tablet,Delayed Release (Dr/Ec) 81 mg PO BID 30 Days Qty: 60 0RF polyethylene glycol 3350 [Miralax] 17 gram powder in packet 17 g PO DAILY PRN (Reason: constipation) Qty: 5 0RF cefadroxil 500 mg capsule 500 mg PO BID Qty: 28 1RF oxycodone 5 mg tablet 5 mg PO Q4H MDD 6 PRN (Reason: pain) Qty: 30 0RF Continued cyclobenzaprine 10 mg Tablet 10 mg PO TID PRN (Reason: Muscle Spasm) atorvastatin 40 mg Tablet 40 mg PO PM fexofenadine 180 mg Tablet 180 mg PO QPM pantoprazole 20 mg Tablet,Delayed Release (Dr/Ec) 20 mg PO QPM levothyroxine 75 mcg Tablet 75 mcg PO QPM pramipexole [Mirapex] 0.5 mg Tablet 0.5 mg PO TID fluticasone propionate 50 mcg/actuation [place],Suspension 1 spray INTRANASAL QAM Rx Instructions: administer into each nostril escitalopram oxalate [Lexapro] 10 mg Tablet 10 mg PO QAM gabapentin 300 mg Tablet 300 mg PO HS potassium chloride 20 mEq Tablet Extended Release 20 meq PO QPM valsartan 40 mg Tablet 40 mg PO QPM cyclosporine [Restasis] 0.05 % Dropperette 1 drp OPHTHALMIC (EYE) Q12H cholecalciferol (vitamin D3) [Vitamin D3] 50 mcg (2,000 unit) Tablet 2,000 unit PO BID lacosamide 100 mg Tablet 100 mg PO BID Jardiance 10 mg Tablet 10 mg PO QPM Discontinued acetaminophen-codeine 300-30 mg Tablet 1 tab PO Q8H PRN (Reason: Pain) Warren 3 Fish Oil 684-1,200 mg Capsule,Delayed Release(Dr/Ec) 1 cap PO BID Krames/Other Patient Handouts: Knee Replace Home Recovery Admission Data Admit Date/Time: 03/23/23 10:48 Attending Provider: Dayne Mckenzie Admit Provider: Dayne Mckenzie Primary Care Provider: Sandy Milligan Other Providers: Yakov Rangel Sarah E Other Interventions: Discharge Summary Assessment (RN) Last Done: 03/24/23 10:23
== END 2023-03-24 11:01 | disposition home health service (06) ==
LOC: PACUINP 06:32 → ASU 06:32 → 3N 13:41